=== PATIENT | male | born 1985 | race Caucasian/White ===

== ENCOUNTER → 2017-09-02 | Day surgery (SDC) | payer OTHER ==
[~2017-09-02] MED LIST: CHLOROPROCAINE PRES. FREE 3% INJ 20 ML VIAL (J2400) As Ordered; GLYCOPYRROLATE INJ 0.2 MG/ML 2 ML VIAL As Ordered; KETOROLAC 60 MG/2 ML VIAL (J1885) As Ordered; LIDOCAINE 2% INJ 100 MG/5 ML SDV (FOR ANES.) As Ordered; LR 1,000 ML IV; MEPERIDINE INJ 25 MG/ML VIAL (J2175) IV; METOCLOPRAMIDE INJ 10MG/2ML VIAL (J2765) IV; MIDAZOLAM INJ 2 MG/2 ML VIAL (J2250) As Ordered; NEOSTIGMINE 10 MG/10 ML VIAL (J2710) As Ordered; ONDANSETRON 4MG/2ML VIAL (J2405) As Ordered; ONDANSETRON 4MG/2ML VIAL (J2405) IV; PROPOFOL 200 MG/20 ML VIAL As Ordered; ROCURONIUM BROMIDE 50 MG/5 ML VIAL As Ordered; SILVER NITRATE APPLICATOR As Ordered; SILVER NITRATE APPLICATOR TOP; dexameTHASONE 4 MG/ML 1ML VIAL (J1100) As Ordered; fentaNYL 100 MCG/2 ML INJECTION (J3010) As Ordered; fentaNYL 100 MCG/2 ML INJECTION (J3010) IV
[2017-09-02] MEDS: LR 1,000 ML IV (10:28)
[2017-09-02] MEDS: PERCOCET 5MG/325MG TAB PO (16:03)
[2017-09-02] MEDS: NORCO, ANEXSIA 5/325MG TABLET (HYDROcodone/ACETAMINOPHEN) PO (18:30)
== END | disposition home or self-care (01) ==
LOC: M SDC 09:27
DX: L05.91 Pilonidal cyst without abscess (principal); F17.210 Nicotine dependence, cigarettes, uncomplicated; Z79.2 Long term (current) use of antibiotics
CPT/HCPCS: 11770

== ENCOUNTER 2017-11-03 15:14 | Outpatient (RCR) | payer OTHER | END 2017-11-21 | LOC: M OUTALCOH 11-09 13:30 | DX: F10.20 Alcohol dependence, uncomplicated (principal); F17.200 Nicotine dependence, unspecified, uncomplicated ==

== ENCOUNTER 2017-11-23 15:43 | Outpatient (RCR) | payer OTHER | END 2017-12-22 | LOC: M OUTALCOH 15:43 | DX: F10.20 Alcohol dependence, uncomplicated (principal); F17.200 Nicotine dependence, unspecified, uncomplicated ==

== ENCOUNTER → 2018-04-11 | Outpatient (CLI) | payer OTHER | LOC: M OUTALCOH 07:57 | DX: F10.20 Alcohol dependence, uncomplicated (principal) ==

== ENCOUNTER 2018-04-21 13:48 | Outpatient (RCR) | payer OTHER | END 2018-04-23 | LOC: M OUTALCOH 13:48 | DX: F10.20 Alcohol dependence, uncomplicated (principal); F17.200 Nicotine dependence, unspecified, uncomplicated; F15.20 Other stimulant dependence, uncomplicated ==

== ENCOUNTER 2018-04-27 14:00 | Outpatient (RCR) | payer OTHER | END 2018-05-24 | LOC: M OUTALCOH 05-02 09:00 | DX: F10.20 Alcohol dependence, uncomplicated (principal); F17.200 Nicotine dependence, unspecified, uncomplicated; F15.20 Other stimulant dependence, uncomplicated ==

== ENCOUNTER 2018-05-26 11:14 | Outpatient (RCR) | payer OTHER | END 2018-06-23 | LOC: M OUTALCOH 11:14 | DX: F10.20 Alcohol dependence, uncomplicated (principal); F17.200 Nicotine dependence, unspecified, uncomplicated; F15.20 Other stimulant dependence, uncomplicated ==

== ENCOUNTER → 2018-07-24 | Outpatient (RCR) | payer OTHER ==
[~2018-07-24] MED LIST changes: +AUGM875T28 PO; -CHLOROPROCAINE PRES. FREE 3% INJ 20 ML VIAL (J2400) As Ordered; -GLYCOPYRROLATE INJ 0.2 MG/ML 2 ML VIAL As Ordered; -KETOROLAC 60 MG/2 ML VIAL (J1885) As Ordered; -LIDOCAINE 2% INJ 100 MG/5 ML SDV (FOR ANES.) As Ordered; -LR 1,000 ML IV; -MEPERIDINE INJ 25 MG/ML VIAL (J2175) IV; -METOCLOPRAMIDE INJ 10MG/2ML VIAL (J2765) IV; -MIDAZOLAM INJ 2 MG/2 ML VIAL (J2250) As Ordered; -NEOSTIGMINE 10 MG/10 ML VIAL (J2710) As Ordered; -ONDANSETRON 4MG/2ML VIAL (J2405) As Ordered; -ONDANSETRON 4MG/2ML VIAL (J2405) IV; -PROPOFOL 200 MG/20 ML VIAL As Ordered; -ROCURONIUM BROMIDE 50 MG/5 ML VIAL As Ordered; -SILVER NITRATE APPLICATOR As Ordered; -SILVER NITRATE APPLICATOR TOP; -dexameTHASONE 4 MG/ML 1ML VIAL (J1100) As Ordered; -fentaNYL 100 MCG/2 ML INJECTION (J3010) As Ordered; -fentaNYL 100 MCG/2 ML INJECTION (J3010) IV
== END ==
LOC: M OUTALCOH 06-26 08:39
PROVIDERS: ATTEND Psychiatry & Neurology Psychiatry
DX: F10.20 Alcohol dependence, uncomplicated (principal); F15.20 Other stimulant dependence, uncomplicated; F17.200 Nicotine dependence, unspecified, uncomplicated

== ENCOUNTER 2018-08-21 14:00 | Outpatient (RCR) | payer OTHER | END 2018-08-24 | LOC: M OUTALCOH 14:00 | PROVIDERS: ATTEND Psychiatry & Neurology Psychiatry | DX: F12.10 Cannabis abuse, uncomplicated (principal); F15.20 Other stimulant dependence, uncomplicated; F17.200 Nicotine dependence, unspecified, uncomplicated ==

== ENCOUNTER 2018-09-18 16:00 | Outpatient (RCR) | payer OTHER | END 2018-09-21 | LOC: M OUTALCOH 16:00 | PROVIDERS: ATTEND Psychiatry & Neurology Psychiatry | DX: F10.20 Alcohol dependence, uncomplicated (principal); F15.20 Other stimulant dependence, uncomplicated; F17.200 Nicotine dependence, unspecified, uncomplicated ==

== ENCOUNTER 2018-10-16 16:00 | Outpatient (RCR) | payer OTHER | END 2018-10-22 | LOC: M OUTALCOH 16:00 | PROVIDERS: ATTEND Psychiatry & Neurology Psychiatry | DX: F10.20 Alcohol dependence, uncomplicated (principal); F15.20 Other stimulant dependence, uncomplicated; F17.200 Nicotine dependence, unspecified, uncomplicated ==

== ENCOUNTER 2018-11-01 10:00 | Outpatient (RCR) | payer OTHER | END 2018-11-21 | LOC: M OUTALCOH 10:00 | PROVIDERS: ATTEND Psychiatry & Neurology Psychiatry | DX: F10.20 Alcohol dependence, uncomplicated (principal); F17.200 Nicotine dependence, unspecified, uncomplicated; F15.20 Other stimulant dependence, uncomplicated ==

== ENCOUNTER 2024-10-04 23:47 | Emergency (ER) | payer MEDICAID, OTHER, SELFPAY ==
[~2024-10-04] VITALS: Ht 193 cm; Wt 117.6 kg
[2024-10-05] MEDS: MIDAZOLAM 5MG/ML 1ML VIAL IM ONE (00:30)
[2024-10-05] MEDS: HALOPERIDOL LACTATE 5MG/ML VIAL IM ONE ×2 (00:30→03:13)
[2024-10-05] MEDS: diphenhydrAMINE 50MG/ML VIAL IM STA (03:13)
[2024-10-05] MEDS: LORazepam 2 MG/ML 1ML VIAL IM STA (03:13)
[2024-10-05 10:19] VITALS: BP 118/69; TEMP 98; O2SAT 97
== END 2024-10-05 10:36 | disposition home or self-care (01) ==
LOC: M ED 23:47 → EDBD 23:47 → M ED 10-05 10:36
DX: F10.130 Alcohol abuse with withdrawal, uncomplicated (principal); Y90.9 Presence of alcohol in blood, level not specified; W19.XXXA Unspecified fall, initial encounter; Y92.9 Unspecified place or not applicable; Y93.89 Activity, other specified; Y99.9 Unspecified external cause status
CPT/HCPCS: 70450; 96372; 99285; J1200; J1630; J2060; J2250